=== PATIENT | female | born 1995 | race Caucasian/White ===

== ENCOUNTER 2020-06-24 00:02 | Inpatient (IN) | payer BC ==
[~2020-06-24] VITALS: Ht 167.6 cm; Wt 138.3 kg
[~2020-06-24 00:02] MED LIST: BAYER CHEWABLE81 MG MT
--- NOTE | 2020-06-24 15:05 | PR ---
[facility] [address] [facility] [place], [place] [address] Signed Progress Notes IP Datetime Report Generated by CPN: 06/24/2020 15:05 PROGRESS NOTES: [id number] Impression: Reassuring Heart Rate Procedures: Sterile Vag Exam Plan: Continue Present Management VITAL SIGNS: [id number] Vital Signs: Reviewed VS Notable Details: One slightly elevated systolic EXAM: [id number] Dilatation: 2.0 Effacement: 70 Station: -2 MEMBRANES: [id number] Comments: Pt seen and examined. Doing well. Little cervical change w/ cytotec thus far. Will continue cytotec ripening. Will consider Cook Cath if unchanged w/ next 1-2 doses of cytotec. Pt understands and agrees FETUS A: [id number] FHR Baseline: 130 Variability: Minimal - >Undetectable to <=5bpm Accelerations: 15X15 Decelerations: None FHR Category: Category II Presentation: Vertex Comments on Fetus A: No evidence of metabolic acidosis FETUS B: [id number] Signing Physician: Leeanna Almonte DO Copies: ~ *Electronically Signed* 06/24/20 9979 LEEANNA ALMONTE DO PATIENT NAME: ORLO COLE PROGRESS NOTE DATE OF : [birth year] PHYSICIAN: LEEANNA ALMONTE DO RPT #: [id number] REPORT IS CONFIDENTIAL AND NOT TO BE RELEASED WITHOUT AUTHORIZATION
--- NOTE | 2020-06-24 18:27 | PR ---
[facility] [address] [place], [place] [address] Signed Progress Notes IP Datetime Report Generated by CPN: 06/24/2020 18:27 PROGRESS NOTES: [id number] Impression: Normal Progression of Labor; Reassuring Heart Rate Procedures: Artificial ROM; Sterile Vag Exam Plan: Continue Present Management; Anticipate Vaginal Delivery Informed Consent Obtain: Vaginal Delivery VITAL SIGNS: [id number] Vital Signs: Reviewed VS Notable Details: One slightly elevated systolic EXAM: [id number] Dilatation: 7.0 Effacement: 85 Station: -2 MEMBRANES: [id number] Comments: Pt seen and examined. Epidural kindly placed by anesthesia and pt much more comfortable. Progressing rapidly and will monitor closely. AROM easily performed for small amount clear fluid. Mother and baby tolerated well. FETUS A: [id number] FHR Baseline: 130 Variability: Minimal - >Undetectable to <=5bpm Accelerations: 15X15 Decelerations: None FHR Category: Category II Presentation: Vertex Comments on Fetus A: No evidence of metabolic acidosis FETUS B: [id number] Signing Physician: Leeanna Almonte DO Copies: ~ *Electronically Signed* 06/24/20 1827 LEEANNA ALMONTE DO PATIENT NAME: ROLO COLE PROGRESS NOTE DATE OF : 97 PHYSICIAN: LEEANNA ALMONTE DO RPT #: [id number] REPORT IS CONFIDENTIAL AND NOT TO BE RELEASED WITHOUT AUTHORIZATION
--- NOTE | 2020-06-24 20:49 | PR ---
[facility] [address] [facility] [place], [place] [address] Signed Progress Notes IP Datetime Report Generated by CPN: 06/24/2020 20:49 PROGRESS NOTES: [id number] Impression: Normal Progression of Labor Procedures: Sterile Vag Exam Plan: Anticipate Vaginal Delivery Informed Consent Obtain: Vaginal Delivery VITAL SIGNS: [id number] Vital Signs: Reviewed VS Notable Details: One slightly elevated systolic EXAM: [id number] Dilatation: 10.0 Effacement: 95 Station: 0 MEMBRANES: [id number] Comments: Pt seen and examined. Doing well. Complete and pushed well w/ practice push. FHT reassuring. More uncomfortable w/ epidural. Will start pushing. Reviewed anticipated course of second stage of labor. All questions answered. Anticipate FETUS A: [id number] FHR Baseline: 130 Variability: Minimal - >Undetectable to <=5bpm Accelerations: 15X15 Decelerations: None FHR Category: Category II Presentation: Vertex Comments on Fetus A: No evidence of metabolic acidosis FETUS B: [id number] Signing Physician: Leeanna Almonte DO Copies: ~ *Electronically Signed* 06/24/202048 LEEANNA ALMONTE DO PATIENT NAME: ROLO COLE PROGRESS NOTE DATE OF : 97 PHYSICIAN: LEEANNA ALMONTE DO RPT #: [id number] REPORT IS CONFIDENTIAL AND NOT TO BE RELEASED WITHOUT AUTHORIZATION
--- NOTE | 2020-06-24 21:51 | PR ---
[facility] [address] [place], [place] [address] Signed Progress Notes IP Datetime Report Generated by CPN: 06/24/2020 21:51 PROGRESS NOTES: [id number] Impression: Normal Progression of Labor; Reassuring Heart Rate Procedures: Sterile Vag Exam Plan: Continue Present Management; Anticipate Vaginal Delivery Informed Consent Obtain: Section Delivery; Risks, Benefits and Alternatives Discussed VITAL SIGNS: [id number] Vital Signs: Reviewed VS Notable Details: One slightly elevated systolic EXAM: [id number] Dilatation: 10.0 Effacement: 95 Station: 0 MEMBRANES: [id number] Comments: Pt seen and examined. Pushing well w/ contractions and slow progress w/ each contraction noted. Fetus tolerating pushing well. Reviewed anticipated course of 2nd stage of labor. Anticipate FETUS A: [id number] FHR Baseline: 130 Variability: Minimal - >Undetectable to <=5bpm Accelerations: 15X15 Decelerations: None FHR Category: Category II Presentation: Vertex Comments on Fetus A: No evidence of metabolic acidosis FETUS B: [id number] Signing Physician: Leeanna Almonte DO Copies: ~ *Electronically Signed* 06/24/20 587 LEEANNA ALMONTE DO PATIENT NAME: ROLO COLE PROGRESS NOTE DATE OF : 97 PHYSICIAN: LEEANNA ALMONTE DO RPT #: [id number] REPORT IS CONFIDENTIAL AND NOT TO BE RELEASED WITHOUT AUTHORIZATION
--- NOTE | 2020-06-25 17:43 | PR ---
[facility] [address] [place], [place] [address] Signed PP Progress Notes Datetime Report Generated by CPN: 06/25/2020 17:42 SUBJECTIVE: [id number] Pain: Within Normal Limits Nausea/Vomiting: Denies Flatus: Yes Bowel Movement: No Vital Signs: [id number] Vital Signs: Reviewed; Within Normal Limits Cardiovascular: Normal Respiratory: Normal Abdomen/Uterus: Normal Lochia: Normal Vulva/Perineum: Not Done Breasts: Not Done CVA Tenderness: Normal Extremities: Normal Incision: Not Applicable Progress: Normal Exam Comments: Fundus firm U-2 nontender IMPRESSION/PLAN/PROCEDURES: [id number] Impression: Normal Progression Plan: Continue Present Management Progress Notes: Pt seen and examined. Doing well. Ambulating, voiding, and tolerating full diet. Pain and lochia minimal. . No concerns. Anticipate d/c home tomorrow. Signing Physician: Leeanna Almonte DO Copies: ~ *Electronically Signed* 06/25/20 1742 LEEANNA ALMONTE DO PATIENT NAME: KELSEYROLO PAIZ PROGRESS NOTE DATE OF : 97 PHYSICIAN: LEEANNA ALMONTE DO RPT #: [id number] REPORT IS CONFIDENTIAL AND NOT TO BE RELEASED WITHOUT AUTHORIZATION
--- NOTE | 2020-06-26 10:07 | PR ---
[facility] [address] [facility] [place], [place] [address] Signed PP Progress Notes Datetime Report Generated by CPN: 06/26/2020 10:06 SUBJECTIVE: [id number] Pain: Within Normal Limits Nausea/Vomiting: Denies Flatus: Yes Bowel Movement: No Vital Signs: [id number] Vital Signs: Reviewed; Within Normal Limits Cardiovascular: Normal Respiratory: Normal Abdomen/Uterus: Normal Lochia: Normal Vulva/Perineum: Not Done Breasts: Not Done CVA Tenderness: Normal Extremities: Normal Incision: Not Applicable Progress: Normal Exam Comments: Fundus firm U-2 nontender IMPRESSION/PLAN/PROCEDURES: [id number] Impression: Normal Progression Plan: Discharge Progress Notes: Pt seen and examined. Doing well. Ambulating, voiding, and tolerating full diet. Pain and lochia minimal. well. No questions or concerns. D/c home today w/ 2 wk f/u scheduled. Reviewed pp instructions in detail. Unsure of contraceptive plans but agrees to at least 6 wks abstinence. Signing Physician: Leeanna Almonte DO Copies: ~ *Electronically Signed* 06/26/20 1006 LEEANNA ALMONTE DO PATIENT NAME: ROLO COLE PROGRESS NOTE DATE OF : 97 PHYSICIAN: LEEANNA ALMONTE DO RPT #: [id number] REPORT IS CONFIDENTIAL AND NOT TO BE RELEASED WITHOUT AUTHORIZATION
== END 2020-06-26 11:30 | disposition home or self-care (01) | DRG 807 ==
LOC: FBC 00:02
PROVIDERS: ADMIT Obstetrics & Gynecology; ATTEND Obstetrics & Gynecology
PROC: 10E0XZZ Delivery of Products of Conception, External Approach (ICD-10-PCS; principal; 2020-06-24)
PROC: 0KQM0ZZ Repair Perineum Muscle, Open Approach (ICD-10-PCS; 2020-06-24)
PROC: 0UQMXZZ Repair Vulva, External Approach (ICD-10-PCS; 2020-06-24)
PROC: 10907ZC Drainage of Amniotic Fluid, Therapeutic from Products of Conception, Via Natural or Artificial Opening (ICD-10-PCS; 2020-06-24)
PROC: 3E0P7VZ Introduction of Hormone into Female Reproductive, Via Natural or Artificial Opening (ICD-10-PCS; 2020-06-24)
PROC: 00HU33Z Insertion of Infusion Device into Spinal Canal, Percutaneous Approach (ICD-10-PCS; 2020-06-24)
PROC: 3E0R3BZ Introduction of Anesthetic Agent into Spinal Canal, Percutaneous Approach (ICD-10-PCS; 2020-06-24)
DX: O99.214 Obesity complicating childbirth (principal); E66.9 Obesity, unspecified; O48.0 Post-term pregnancy; O99.324 Drug use complicating childbirth; F12.90 Cannabis use, unspecified, uncomplicated; O70.1 Second degree perineal laceration during delivery; O71.82 Other specified trauma to perineum and vulva; Z37.0 Single live birth; Z3A.40 40 weeks gestation of pregnancy; Z86.59 Personal history of other mental and behavioral disorders
CPT/HCPCS: 01960; 36415; 85027; A9270; J2590; J2795